=== PATIENT | male | born 1995 | race Caucasian/White ===

== ENCOUNTER 2017-09-05 19:30 | Emergency (ER) | payer OTHER ==
[2017-09-05] MEDS: IBUPROFEN 600 MG TAB PO (20:30)
== END 2017-09-05 21:59 | disposition home or self-care (01) ==
LOC: M ED 19:30
DX: S89.91XA Unspecified injury of right lower leg, initial encounter (principal); W22.8XXA Striking against or struck by other objects, initial encounter; Y92.59 Other trade areas as the place of occurrence of the external cause; Y99.0 Civilian activity done for income or pay
CPT/HCPCS: 73564